=== PATIENT | female | born 1965 | race American Indian/Alaskan Native ===

== ENCOUNTER 2018-03-09 13:58 | Emergency (ER) | payer MEDICAID, OTHER ==
[2018-03-09 14:38] VITALS: BP 130/70
[2018-03-09] MEDS ORDERED: ULTRAM PO ONE (17:04)
--- NOTE | 2018-03-09 17:11 | Emergency Department Report ---
ED General Adult HPI - General Chief complaint: Extremity Injury, Lower Stated complaint: LEG PAIN IN BOTH LEGS Time Seen by Provider: 03/09/18 16:40 Source: patient Mode of arrival: Ambulatory Limitations: No Limitations - History of Present Illness Initial comments: Patient presents to the emergency department with a complaint of pain. Patient states she has no scrotal pain after receiving chemotherapy for her breast cancer. Patient states she used to have a pain management physician but is now in transition. Patient has no other complaints - Related Data Home Medications Medication Instructions Recorded Confirmed Last Taken Gabapentin [Neurontin] 600 mg PO Q8H 06/15/16 06/15/16 Unknown Morphine ER 30 mg PO PRN 06/15/16 Unknown Previous Rx's Medication Instructions Recorded Last Taken Type traMADol [Ultram] 50 mg PO Q6HR PRN #10 tablet 06/15/16 Unknown Rx traMADol [Ultram] 50 mg PO Q6HR PRN #20 tablet 03/09/18 Unknown Rx Allergies Allergy/AdvReac Type Severity Reaction Status Date / Time No Known Allergies Allergy Verified 06/13/15 11:12 ED Review of Systems ROS: Stated complaint: LEG PAIN IN BOTH LEGS Other details as noted in HPI Comment: All other systems reviewed and negative Constitutional: denies: chills, fever Eyes: denies: eye pain, eye discharge, vision change ENT: denies: ear pain, throat pain Respiratory: denies: cough, shortness of breath, wheezing Cardiovascular: denies: chest pain, palpitations Endocrine: no symptoms reported Gastrointestinal: denies: abdominal pain, nausea, diarrhea Genitourinary: denies: urgency, dysuria, discharge Musculoskeletal: denies: back pain, joint swelling, arthralgia Skin: denies: rash, lesions Neurological: denies: headache, weakness, paresthesias Psychiatric: denies: anxiety, depression Hematological/Lymphatic: denies: easy bleeding, easy bruising ED Past Medical Hx - Past Medical History Previous Medical History?: Yes Hx Hypertension: No Hx Heart Attack/AMI: No Hx Renal Disease: No Hx of Cancer: Yes (BREAST) Hx Seizures: No Hx Asthma: No Hx COPD: No - Surgical History Past Surgical History?: Yes Hx Pacemaker: No Hx Internal Defibrillator: No Hx Breast Surgery: Yes (Right breast biopsy, Right breast lump removal) - Social History Smoking Status: Current Every Day Smoker Substance Use Type: Alcohol, Prescribed - Medications Home Medications: Home Medications Medication Instructions Recorded Confirmed Last Taken Type Gabapentin [Neurontin] 600 mg PO Q8H 06/15/16 06/15/16 Unknown History Morphine ER 30 mg PO PRN 06/15/16 Unknown History traMADol [Ultram] 50 mg PO Q6HR PRN #10 tablet 06/15/16 Unknown Rx traMADol [Ultram] 50 mg PO Q6HR PRN #20 tablet 03/09/18 Unknown Rx ED Physical Exam - General Limitations: No Limitations General appearance: alert, in no apparent distress - Head Head exam: Present: atraumatic, normocephalic - Eye Eye exam: Present: normal appearance - ENT ENT exam: Present: mucous membranes moist - Neck Neck exam: Present: normal inspection - Respiratory Respiratory exam: Present: normal lung sounds bilaterally. Absent: respiratory distress - Cardiovascular Cardiovascular Exam: Present: regular rate, normal rhythm. Absent: systolic murmur, diastolic murmur, rubs, gallop - GI/Abdominal GI/Abdominal exam: Present: soft, normal bowel sounds - Extremities Exam Extremities exam: Present: normal inspection - Back Exam Back exam: Present: normal inspection - Neurological Exam Neurological exam: Present: alert, oriented X3 - Psychiatric Psychiatric exam: Present: normal affect, normal mood - Skin Skin exam: Present: warm, dry, intact, normal color. Absent: rash ED Course Vital Signs 03/09/18 14:30 Temperature 98 F Pulse Rate 83 Respiratory 16 Rate Blood Pressure 130/70 O2 Sat by Pulse 98 Oximetry ED Medical Decision Making - Medical Decision Making Discussed particular patient. Discussed with patient that I would not be able to prescribe any narcotics especially at the [place] [facility] database from narcotics. Patient states she was okay with that and asked for a nonnarcotic prescription such as Ultram. Critical care attestation.: If time is entered above; I have spent that time in minutes in the direct care of this critically ill patient, excluding procedure time. ED Disposition Clinical Impression: Chronic pain Disposition: DC-01 TO HOME OR SELFCARE Is pt being admited?: No Does the pt Need Aspirin: No Condition: Stable Instructions: Chronic Pain (ED) Additional Instructions: Return if symptoms worsen Prescriptions: traMADol [Ultram] 50 mg PO Q6HR PRN #20 tablet PRN Reason: Pain Referrals: PRIMARY CARE, [Primary Care Provider] - 3-5 Days STEWART NOEL MD [Staff Physician] - 3-5 Days Time of Disposition: 17:11
== END 2018-03-09 17:15 | disposition home or self-care (01) ==
LOC: ED 13:58
DX: G89.29 Other chronic pain (principal); M79.604 Pain in right leg; M79.605 Pain in left leg; F17.200 Nicotine dependence, unspecified, uncomplicated
CPT/HCPCS: 99282

== ENCOUNTER 2019-09-12 14:41 | Emergency (ER) | payer OTHER, MEDICAID ==
[2019-09-12 18:31] VITALS: BP 115/69
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
== END 2019-09-12 19:49 | disposition home or self-care (01) ==
LOC: ED 14:41
DX: S83.91XA Sprain of unspecified site of right knee, initial encounter (principal); J34.89 Other specified disorders of nose and nasal sinuses; Z85.3 Personal history of malignant neoplasm of breast; Z98.890 Other specified postprocedural states; Z79.899 Other long term (current) drug therapy; V43.52XA Car driver injured in collision with other type car in traffic accident, initial encounter; Y93.89 Activity, other specified; Y92.410 Unspecified street and highway as the place of occurrence of the external cause; Y99.8 Other external cause status

== ENCOUNTER 2019-09-25 09:52 | Emergency (ER) | payer MEDICAID, OTHER ==
[2019-09-25] MEDS ORDERED: SODIUM CHLORIDE 0.9% 1000 ML 1,000 ML IV ONE (11:48)
[2019-09-25] MEDS ORDERED: MORPHINE 4 MG/1 ML INJ IV ONE (11:48)
[2019-09-25] MEDS ORDERED: ONDANSETRON 4 MG/2 ML INJ IV ONE (11:48)
[2019-09-25 11:56] LABS: Bilirubin,Urine NEG (Negative); Blood,Urine NEG (Negative); Color,Urine Yellow (Yellow); Mucus,Urine 1+ /HPF; Protein,Urine <15 mg/dL mg/dL (Negative); Urobilinogen,Urine < 2.0 mg/dL (<2.0)
[2019-09-25] MEDS ORDERED: DICYCLOMINE 10 MG/5 ML ORAL LIQD PO ONE (12:00)
[2019-09-25 12:10] LABS: Basophils # (Auto) 0.1 K/mm3 (0.0-0.1); Basophils % (Auto) 0.6 % (0.0-1.8); Eosinophils # (Auto) 0.1 K/mm3 (0.0-0.4); Eosinophils % (Auto) 0.7 % (0.0-4.3); Hematocrit 41.5 % (30.3-42.9); Hemoglobin 14.3 gm/dl (10.1-14.3); Lymphocytes # (Auto) 1.8 K/mm3 (1.2-5.4); Lymphocytes % (Auto) 12.6 % (13.4-35.0); Mean Corpuscular HGB Conc 35 % (30-34); Mean Corpuscular Volume 87 fl (79-97); Monocytes # (Auto) 0.7 K/mm3 (0.0-0.8); Monocytes % (Auto) 4.5 % (0.0-7.3); Platelet Count 202 K/mm3 (140-440); Red Blood Count 4.75 M/mm3 (3.65-5.03); Red Cell Distribution Width 13.9 % (13.2-15.2)
[2019-09-25 12:33] LABS: Alanine Aminotransferase 30 units/L (7-56); Albumin 4.3 g/dL (3.9-5); BUN/Creatinine Ratio 17; Blood Urea Nitrogen 15 mg/dL (7-17); Calcium 9.3 mg/dL (8.4-10.2); Hemolysis Index 7
--- NOTE | 2019-09-25 13:34 | Emergency Department Report ---
ED Abdominal Pain HPI - General Chief Complaint: Urogenital-Female Stated Complaint: LFT SIDE PAIN/VOMIT Time Seen by Provider: 09/25/19 11:45 Source: patient Mode of arrival: Ambulatory Limitations: No Limitations - History of Present Illness Initial Comments: This is a 54-year-old female nontoxic, well nourished in appearance, no acute signs of distress presents to the ED with c/o of nausea and vomiting and abdominal pain 1 day. Patient describes vomiting as food content and yellow gastric acid. Patient describes abdominal pain as cramping and aching with level of 3/10 to left upper and lower abdominal area. Patient denies chest pain, short of breath, fever, chills, headache, stiff neck, numbness or tingling. Patient denies any diarrhea or constipation. Patient denies any recent travels. Patient denies any allergies with past medical history of breast cancer. MD Complaint: abdominal pain -: days(s) (1) Location: LUQ, LLQ Radiation: none Migration to: no migration Severity: mild Severity scale (0 -10): 8 Quality: cramping, aching Consistency: constant Improves With: nothing Worsens With: nothing Associated Symptoms: nausea, vomiting. denies: diarrhea, fever, chills, constipation, dysuria, hematemesis, hematochezia, melena, hematuria, anorexia, syncope - Related Data Home Medications Medication Instructions Recorded Confirmed Last Taken Gabapentin [Neurontin] 600 mg PO Q8H 06/15/16 06/15/16 Unknown Morphine ER 30 mg PO PRN 06/15/16 Unknown Previous Rx's Medication Instructions Recorded Last Taken Type traMADoL [Ultram] 50 mg PO Q6HR PRN #10 tablet 06/15/16 Unknown Rx traMADoL [Ultram] 50 mg PO Q6HR PRN #20 tablet 03/09/18 Unknown Rx Cyclobenzaprine [Flexeril] 10 mg PO QHS PRN #10 tablet 09/12/19 Unknown Rx Naproxen [EC-Naprosyn] 500 mg PO BID PRN #14 tablet. 09/12/19 Unknown Rx Acetaminophen/Codeine [Tylenol 1 tab PO Q6H PRN #12 tab 09/25/19 Unknown Rx /Codeine # 3 tab] Ondansetron [Zofran Odt] 4 mg PO Q8HR PRN #20 tab.rapdis 12/01/19 Unknown Rx Allergies Allergy/AdvReac Type Severity Reaction Status Date / Time No Known Allergies Allergy Verified 06/13/15 11:12 ED Review of Systems ROS: Stated complaint: LFT SIDE PAIN/VOMIT Other details as noted in HPI Constitutional: denies: chills, fever Eyes: denies: eye pain, eye discharge, vision change ENT: denies: ear pain, throat pain Respiratory: denies: cough, shortness of breath, wheezing Cardiovascular: denies: chest pain, palpitations Endocrine: no symptoms reported Gastrointestinal: abdominal pain, nausea, vomiting. denies: diarrhea Genitourinary: denies: urgency, dysuria, discharge Musculoskeletal: denies: back pain, joint swelling, arthralgia Skin: denies: rash, lesions Neurological: denies: headache, weakness, paresthesias Psychiatric: denies: anxiety, depression Hematological/Lymphatic: denies: easy bleeding, easy bruising ED Past Medical Hx - Past Medical History Previous Medical History?: Yes Hx Hypertension: No Hx Heart Attack/AMI: No Hx Renal Disease: No Hx Seizures: No Hx Asthma: No Hx COPD: No Additional medical history: Breast CA - Surgical History Past Surgical History?: Yes Hx Pacemaker: No Hx Internal Defibrillator: No Hx Breast Surgery: Yes (Right breast biopsy, Right breast lump removal) - Social History Smoking Status: Current Every Day Smoker Substance Use Type: None - Medications Home Medications: Home Medications Medication Instructions Recorded Confirmed Last Taken Type Gabapentin [Neurontin] 600 mg PO Q8H 06/15/16 06/15/16 Unknown History Morphine ER 30 mg PO PRN 06/15/16 Unknown History traMADoL [Ultram] 50 mg PO Q6HR PRN #10 tablet 06/15/16 Unknown Rx traMADoL [Ultram] 50 mg PO Q6HR PRN #20 tablet 03/09/18 Unknown Rx Cyclobenzaprine [Flexeril] 10 mg PO QHS PRN #10 tablet 09/12/19 Unknown Rx Naproxen [EC-Naprosyn] 500 mg PO BID PRN #14 tablet. 09/12/19 Unknown Rx Acetaminophen/Codeine [Tylenol 1 tab PO Q6H PRN #12 tab 09/25/19 Unknown Rx /Codeine # 3 tab] Ondansetron [Zofran Odt] 4 mg PO Q8HR PRN #20 tab.rapdis 09/25/19 Unknown Rx ED Physical Exam - General Limitations: No Limitations General appearance: alert, in no apparent distress - Head Head exam: Present: atraumatic, normocephalic - Neck Neck exam: Present: normal inspection, full ROM - Respiratory Respiratory exam: Present: normal lung sounds bilaterally. Absent: respiratory distress, wheezes, rales, rhonchi, stridor, chest wall tenderness, accessory muscle use, decreased breath sounds, prolonged expiratory - Cardiovascular Cardiovascular Exam: Present: regular rate, normal rhythm, tachycardia - GI/Abdominal GI/Abdominal exam: Present: soft, tenderness (LUQ AND LLQ), normal bowel sounds. Absent: distended, guarding, rebound, rigid, diminished bowel sounds - Extremities Exam Extremities exam: Present: full ROM - Back Exam Back exam: Present: normal inspection, full ROM. Absent: tenderness, CVA tenderness (R), CVA tenderness (L), muscle spasm, paraspinal tenderness, vertebral tenderness, rash noted - Neurological Exam Neurological exam: Present: alert, oriented X3, normal gait - Psychiatric Psychiatric exam: Present: normal affect, normal mood - Skin Skin exam: Present: warm, dry, intact, normal color. Absent: rash ED Course Vital Signs 09/25/19 09/25/19 09/25/19 10:24 11:39 13:57 Temperature 98.4 F 98.5 F Pulse Rate 100 H 71 Respiratory 19 17 Rate Blood Pressure 157/77 Blood Pressure 109/69 [Left] O2 Sat by Pulse 100 100 Oximetry - Reevaluation(s) Reevaluation #1: 09/25/19 13:37 Patient is speaking in full sentences with no signs of distress noted. ED Medical Decision Making - Lab Data Result diagrams: 09/25/19 11:53 09/25/19 11:53 - Medical Decision Making This is a 54-year-old female that presents with abdominal pain and uterine mass. Patient is stable and was examined by me. Negative signs of symptoms of appendicitis. Labs obtained. UA obtained. CT of abdomen obtained and dictated by the radiologist. Patient stated has history of uterine fibroids since taking chemo medication for breast CA. Patient is notified of the report with no questions noted by the patient. Vital signs are stable prior to discharge. Patient received medical treatment in the ED which patient stated symptoms has resolved and subsided. Was instructed note to operate any machinery due to possible drowsiness and stated someone will drive the patient home. A by mouth challenge has been obtained and patient tolerated well with no nausea vomiting. Patient was also instructed to Follow-up with a primary care doctor in 3-5 days or if symptoms worsen and continue return to emergency room as soon as possible. At time of discharge, the patient does not seem toxic or ill in appearance. No acute signs of distress noted. Patient agrees to discharge treatment plan of care. No further questions noted by the patient. - Differential Diagnosis gastritis, bowel obstruction, appendicitis, cholecystitis, pancreatitis Critical care attestation.: If time is entered above; I have spent that time in minutes in the direct care of this critically ill patient, excluding procedure time. ED Disposition Clinical Impression: Uterine mass Abdominal pain Qualifiers: Abdominal location: generalized Qualified Code(s): R10.84 - Generalized abdominal pain Nausea & vomiting Qualifiers: Vomiting type: unspecified Vomiting Intractability: non-intractable Qualified Code(s): R11.2 - Nausea with vomiting, unspecified Disposition: DC-01 TO HOME OR SELFCARE Is pt being admited?: No Does the pt Need Aspirin: No Condition: Stable Additional Instructions: Follow-up with a OBGYN doctor in 2 days or if symptoms worsen and continue re turn to emergency room as soon as possible. Do not operate any machinery while taking Tylenol with codeine as this may cause drowsiness. Prescriptions: Acetaminophen/Codeine [Tylenol /Codeine # 3 tab] 1 tab PO Q6H PRN #12 tab PRN Reason: Pain , Severe (7-10) Ondansetron [Zofran Odt] 4 mg PO Q8HR PRN #20 tab.rapdis PRN Reason: Nausea Referrals: PRIMARY CARE, [Primary Care Provider] - 2-3 Days RYLAN TAYLOR MD [Staff Physician] - 2-3 Days [facility] [Provider Group] - 2-3 Days Forms: Work/School Release Form(ED)
--- NOTE | 2019-09-25 13:35 | Cat Scan Report ---
CT ABDOMEN AND PELVIS WITH CONTRAST HISTORY: abd pain. Acute left-sided abdominal pain with frequent urination COMPARISON: None. TECHNIQUE: CT images of the abdomen and pelvis were obtained following administration of intravenous contrast. All CT scans at this location are performed using CT dose reduction for ALARA by means of automated exposure control. CONTRAST: 100 ml of intravenous contrast administered. FINDINGS: Lungs/bones: Mild emphysema with otherwise clear lung bases. There is mild DJD in the spine and pelv is with no acute osseous abnormality identified. Abdomen/pelvis: The liver, gallbladder, spleen, pancreas, adrenals, right kidney, and proximal GI tr act appear unremarkable. There is mild left-sided hydronephrosis with periureteral and perinephric stranding. A tiny simple cy st is seen in the midpole. The ureter tracks to the pelvis where there is a large uterine mass causin g mass effect on the distal ureter. There are at least 3 masses in the uterus the largest of which de monstrates intermediate attenuation and measures 11 cm on image #129 of series #2. There is no pelvic free fluid or pathologic iliac chain adenopathy. No pathologic retroperitoneal or peritoneal adenopathy. No acute colonic abnormality. The terminal ileum is normal. IMPRESSION: 1. Large uterine masses as outlined above could be seen with fibroid disease, but consider endometria l sampling to exclude underlying carcinoma. The patient's symptoms are likely related to mass effect on the distal left ureter and mass effect on the urinary bladder. There is secondary inflammatory melissa nge about the left kidney and ureter. Signer Name: Ry Abdi MD Signed: 09/25/2019 1:30 PM Workstation Name: [id number]
[2019-09-25 13:58] VITALS: BP 109/69
== END 2019-09-25 14:30 | disposition home or self-care (01) ==
LOC: ED 09:52
DX: N85.8 Other specified noninflammatory disorders of uterus (principal); R11.2 Nausea with vomiting, unspecified; F17.200 Nicotine dependence, unspecified, uncomplicated; Z85.3 Personal history of malignant neoplasm of breast; Z79.899 Other long term (current) drug therapy
CPT/HCPCS: 36415; 74177; 80053; 81001; 83690; 85025; 96361; 96374; 96375; 99284; J2270; J2405; J7030; Q9966

== ENCOUNTER 2020-08-17 12:16 | Emergency (ER) | payer MEDICAID ==
[2020-08-17 13:25] VITALS: BP 130/69
[2020-08-17 14:35] LABS: Bacteria,Urine 1+ /HPF (Negative); Bilirubin,Urine NEG (Negative); Blood,Urine NEG (Negative); Color,Urine Yellow (Yellow); Mucus,Urine 3+ /HPF; Protein,Urine <15 mg/dL mg/dL (Negative); Urobilinogen,Urine < 2.0 mg/dL (<2.0)
--- NOTE | 2020-08-17 15:47 | Emergency Department Report ---
ED Female HPI - General Chief complaint: Urogenital-Female Stated complaint: SHARP VAGINAL PAIN Source: patient Mode of arrival: Ambulatory Limitations: No Limitations - History of Present Illness Initial comments: 55-year-old -[place] female presents to the emergency room complaining of vaginal pain. Patient denies any vaginal discharge no urinary frequency or urgency. Patient denies any fever chills no nausea no vomiting. Severity scale (0 -10): 4 Quality: sharp Consistency: intermittent Improves with: none Are you Now?: No Associated Symptoms: denies: vaginal discharge, vaginal bleeding - Related Data Sexually active: No Home Medications Medication Instructions Recorded Confirmed Last Taken Gabapentin [Neurontin] 600 mg PO Q8H 06/15/16 06/15/16 Unknown Morphine ER 30 mg PO PRN 06/15/16 Unknown Previous Rx's Medication Instructions Recorded Last Taken Type traMADoL [Ultram] 50 mg PO Q6HR PRN #10 tablet 06/15/16 Unknown Rx traMADoL [Ultram] 50 mg PO Q6HR PRN #20 tablet 03/09/18 Unknown Rx Cyclobenzaprine [Flexeril] 10 mg PO QHS PRN #10 tablet 09/12/19 Unknown Rx Naproxen [EC-Naprosyn] 500 mg PO BID PRN #14 tablet. 09/12/19 Unknown Rx Acetaminophen/Codeine [Tylenol 1 tab PO Q6H PRN #12 tab 09/25/19 Unknown Rx /Codeine # 3 tab] Ondansetron [Zofran Odt] 4 mg PO Q8HR PRN #20 tab.rapdis 09/25/19 Unknown Rx Allergies Allergy/AdvReac Type Severity Reaction Status Date / Time No Known Allergies Allergy Verified 06/13/15 11:12 ED Review of Systems ROS: Stated complaint: SHARP VAGINAL PAIN Other details as noted in HPI Comment: All other systems reviewed and negative ED Past Medical Hx - Past Medical History Previous Medical History?: Yes Hx Hypertension: No Hx Heart Attack/AMI: No Hx Renal Disease: No Hx Seizures: No Hx Asthma: No Hx COPD: No Additional medical history: Breast CA,FIBROIDS - Surgical History Past Surgical History?: Yes Hx Pacemaker: No Hx Internal Defibrillator: No Hx Breast Surgery: Yes (Right breast biopsy, Right breast lump removal) - Social History Smoking Status: Never Smoker Substance Use Type: None - Medications Home Medications: Home Medications Medication Instructions Recorded Confirmed Last Taken Type Gabapentin [Neurontin] 600 mg PO Q8H 06/15/16 06/15/16 Unknown History Morphine ER 30 mg PO PRN 06/15/16 Unknown History traMADoL [Ultram] 50 mg PO Q6HR PRN #10 tablet 06/15/16 Unknown Rx traMADoL [Ultram] 50 mg PO Q6HR PRN #20 tablet 03/09/18 Unknown Rx Cyclobenzaprine [Flexeril] 10 mg PO QHS PRN #10 tablet 09/12/19 Unknown Rx Naproxen [EC-Naprosyn] 500 mg PO BID PRN #14 tablet. 09/12/19 Unknown Rx Acetaminophen/Codeine [Tylenol 1 tab PO Q6H PRN #12 tab 09/25/19 Unknown Rx /Codeine # 3 tab] Ondansetron [Zofran Odt] 4 mg PO Q8HR PRN #20 tab.rapdis 09/25/19 Unknown Rx ED Physical Exam - General Limitations: No Limitations General appearance: alert, in no apparent distress - Head Head exam: Present: atraumatic, normocephalic - Eye Eye exam: Present: normal appearance - ENT ENT exam: Present: mucous membranes moist - Neck Neck exam: Present: normal inspection, full ROM - Respiratory Respiratory exam: Absent: chest wall tenderness - Extremities Exam Extremities exam: Present: normal inspection - Neurological Exam Neurological exam: Present: alert, oriented X3, normal gait - Psychiatric Psychiatric exam: Present: normal affect, normal mood - Skin Skin exam: Present: warm, dry, intact, normal color. Absent: rash ED Course Vital Signs 08/17/20 13:22 Temperature 98.0 F Pulse Rate 81 Respiratory 15 Rate Blood Pressure 130/69 O2 Sat by Pulse 100 Oximetry ED Medical Decision Making - Medical Decision Making 55-year-old -[place] female presents to the emergency room complaining of vaginal pain. Patient denies any vaginal discharge no urinary frequency or urgency. Patient denies any fever chills no nausea no vomiting. Negative urine. Recommend for follow-up with an ENVIRONMENTAL ENGINEERING TECHNICIAN. Critical care attestation.: If time is entered above; I have spent that time in minutes in the direct care of this critically ill patient, excluding procedure time. ED Disposition Clinical Impression: Vaginal pain Disposition: TO HOME OR SELFCARE Is pt being admited?: No Does the pt Need Aspirin: No Condition: Stable Additional Instructions: Urinalysis is negative. Need to follow-up with your ENVIRONMENTAL ENGINEERING TECHNICIAN. Referrals: PRIMARY CARE, [Primary Care Provider] - 3-5 Days [facility] [Provider Group] - 3-5 Days
== END 2020-08-17 15:58 | disposition home or self-care (01) ==
LOC: ED 12:16
DX: R10.2 Pelvic and perineal pain (principal); Z98.890 Other specified postprocedural states; Z79.899 Other long term (current) drug therapy
CPT/HCPCS: 81001; 99283